=== PATIENT | female | born 1980 | race Caucasian/White ===

== ENCOUNTER → 2023-07-31 12:00 | Outpatient (CLI) | payer OTHER, SELFPAY ==
[2023-07-31 19:23] LABS: Basophils # 0.1 K/mm3 (0-0.2); Basophils % 0.7 % (0.1-2.0); Eosinophils # 0.4 K/mm3 (0.0-0.4); Eosinophils % 5.6 % (0.1-12.0); Hematocrit 43.2 % (37.0-47.0); Hemoglobin 14.3 g/dL (12.2-16.2); Lymphocytes % 26.9 % (10-50); Mean Corpuscular HGB Conc 33.2 g/dL (31.8-35.4); Mean Corpuscular Hemoglobin 33.2 pg (27.0-31.2); Mean Corpuscular Volume 100.1 fl (81-99); Mean Platelet Volume 10.6 fl (7.4-10.4); Monocytes # 0.5 K/mm3 (0.1-1.0); Monocytes % 6.8 % (1.7-9.3); Neutrophils # 4.5 K/mm3 (1.8-7.8); Platelet Count 295 K/mm3 (142-424); Red Blood Count 4.31 M/mm3 (4.20-5.40); Red Cell Distribution Width 12.9 % (11.5-17.5); White Blood Count 7.6 K/mm3 (4.8-10.8)
[2023-07-31 19:36] LABS: Alanine Aminotransferase 23 U/L (12-78); Albumin Level 4.4 g/dl (3.5-5.0); Albumin/Globulin Ratio 1.6 (1.1-1.8); Alkaline Phosphatase 98 U/L (38-126); Anion Gap 13.5 mEq/L (5-15); Aspartate Amino Transferase 32 U/L (14-36); Bilirubin,Total 0.2 mg/dl (0.2-1.3); Blood Urea Nitrogen 14 mg/dl (7-17); Calcium 9.6 mg/dl (8.4-10.2); Carbon Dioxide 24 mmol/L (22.0-30.0); Chloride 106 mmol/L (98-107); Estimated Glomerular Filt Rate 109 ml/min (>60); GFR (African American) 132 ML/MIN (>60); Globulin 2.8 g/dL (1.3-3.2); Glucose 93 mg/dl (74-100); Potassium 4.5 mmoL/L (3.5-5.1); Sodium 139 mmol/L (136-145); Total Protein,Serum 7.2 g/dl (6.3-8.2)
[2023-07-31 19:56] LABS: 25-OH Vitamin D, Total 49.1 ng/mL (30-100)
[2023-07-31 20:10] LABS: Thyroid Stimulating Hormone 1.12 uIU/mL (0.465-4.68)
== END ==
PROVIDERS: PCP Internal Medicine; Visit Provider Internal Medicine
DX: Z76.89 Persons encountering health services in other specified circumstances (principal); G43.909 Migraine, unspecified, not intractable, without status migrainosus; R56.9 Unspecified convulsions; L50.6 Contact urticaria; Z68.28 Body mass index [BMI] 28.0-28.9, adult; Z72.0 Tobacco use
CPT/HCPCS: 80053; 82306; 84443; 85025

== ENCOUNTER → 2023-08-10 08:45 | Outpatient (CLI) | payer OTHER, SELFPAY ==
--- NOTE | 2023-08-10 08:50 | XR_ITS ---
FINAL REPORT CLINICAL HISTORY: Osteoporosis screening COMPARISON: None FINDINGS: Using L1-4, the bone mineral density of the spine is 1.003 g/cm2, corresponding to T-score of -0.4, within normal limits. Using the left hip, the bone mineral density of the femoral neck is 0.913 g/cm2, corresponding to a T-score of -0.2, within normal limits. Using the right hip, the bone mineral density of the femoral neck is 0.855 g/cm2, corresponding to a T-score of 0.1, within normal limits. FRAX not reported because all T-scores at or above -1.0. NOTE: T-score: Standard deviation compared with peak bone mass of young adult mean. *Following the recommendations of the International Society of Bone densitometry, classification of hip BMD is based on the lower of two T-scores; total hip or femoral neck. IMPRESSION: Normal bone mineral density of the lumbar spine and hips. Reviewed, Interpreted and Dictated by Chico Harvey III, MD Transcribed by Glenda Holder Authenticated and [facility]
== END ==
PROVIDERS: PCP Internal Medicine; Visit Provider Internal Medicine
DX: Z13.820 Encounter for screening for osteoporosis (principal); M85.9 Disorder of bone density and structure, unspecified
CPT/HCPCS: 77080

== ENCOUNTER 2023-09-24 03:06 | Emergency (ER) | payer OTHER, SELFPAY ==
[2023-09-24] VITALS (9 sets, daily range): BP systolic 105–142; BP diastolic 61–80; PULSE 83–124; RESP 16–30; TEMP 36.8; O2SAT 94–100; BMI 27.4; BMI 25.8
[2023-09-24 04:21] LABS: Basophils # 0.1 K/mm3 (0-0.2); Eosinophils # 0.6 K/mm3 (0.0-0.4); Eosinophils % 5.5 % (0.1-12.0); Hematocrit 44.3 % (37.0-47.0); Hemoglobin 14.8 g/dL (12.2-16.2); Lymphocytes # 4.4 K/mm3 (0.7-4.5); Lymphocytes % 39.6 % (10-50); Mean Corpuscular HGB Conc 33.4 g/dL (31.8-35.4); Mean Corpuscular Hemoglobin 32.7 pg (27.0-31.2); Mean Platelet Volume 9.5 fl (7.4-10.4); Monocytes # 0.8 K/mm3 (0.1-1.0); Monocytes % 6.8 % (1.7-9.3); Neutrophils # 5.3 K/mm3 (1.8-7.8); Neutrophils % 47.2 % (37.0-80.0); Platelet Count 310 K/mm3 (142-424); Red Blood Count 4.52 M/mm3 (4.20-5.40); Red Cell Distribution Width 13.4 % (11.5-17.5); White Blood Count 11.1 K/mm3 (4.8-10.8)
[2023-09-24 04:22] LABS: Chloride 108 mmol/L (98-107); Potassium 3.8 mmoL/L (3.5-5.1); Sodium 141 mmol/L (136-145)
[2023-09-24 04:25] LABS: Alanine Aminotransferase 21 U/L (12-78); Albumin Level 4.8 g/dl (3.5-5.0); Albumin/Globulin Ratio 1.5 (1.1-1.8); Alkaline Phosphatase 104 U/L (38-126); Anion Gap 10.8 mEq/L (5-15); Aspartate Amino Transferase 32 U/L (14-36); Bilirubin,Total 0.4 mg/dl (0.2-1.3); Blood Urea Nitrogen 17 mg/dl (7-17); Carbon Dioxide 26 mmol/L (22.0-30.0); Creatinine Clearance Estimated 76 mL/min (50-200); Estimated Glomerular Filt Rate 54 ml/min (>60); GFR (African American) 66 ML/MIN (>60); Globulin 3.3 g/dL (1.3-3.2); Total Protein,Serum 8.1 g/dl (6.3-8.2)
[2023-09-24 04:26] LABS: Calcium 9.8 mg/dl (8.4-10.2); Glucose 97 mg/dl (74-100)
--- NOTE | 2023-09-24 05:42 | [facility].EDGENADL ---
Discharge Plan Disposition Patient Disposition: Home, Self-Care Condition: Good Prescriptions Prescriptions: New epinephrine [EpiPen 2-Alberto] 0.3 mg/0.3 mL auto-injector 0.3 mg IM Q10M PRN (Reason: anaphylaxis) Qty: 2 0RF Rx Instructions: for 2 doses methylprednisolone [Medrol (Alberto)] 4 mg tablets,dose pack 4 mg PO QID Qty: 21 0RF No Action pseudoephedrine HCl [Sudogest 12-hour] 120 mg tablet extended release 120 mg PO Q12H cyclobenzaprine 10 mg tablet 10 mg PO HS topiramate 100 mg tablet 100 mg PO BID diphenhydramine HCl [Allergy Relief(diphenhydramin)] 25 mg tablet 25 mg PO TID PRN cetirizine 10 mg tablet 10 mg PO BID famotidine 20 mg tablet 20 mg PO BID dicyclomine 20 mg tablet 20 mg PO QID PRN promethazine 25 mg tablet 25 mg PO Q6H PRN albuterol sulfate [Ventolin HFA] 90 mcg/actuation HFA aerosol inhaler 2 puff inhalation Q6H PRN sumatriptan succinate 50 mg tablet 50 mg PO Q2H PRN Rx Instructions: do not exceed 4 doses per 24 hrs magnesium 250 mg tablet 400 mg PO DAILY cholecalciferol (vitamin D3) 125 mcg (5,000 unit) capsule 125 mcg PO DAILY vitamin B complex Capsule 1 cap PO DAILY topiramate 100 mg tablet 100 mg PO DAILY 90 Days Qty: 90 3RF cyclobenzaprine 10 mg tablet 10 mg PO HS 30 Days Qty: 30 4RF epinephrine 0.3 mg/0.3 mL syringe 0.3 mg IM Q5-15M PRN (Reason: anaphylaxis) Qty: 2 6RF Rx Instructions: do not exceed 3 doses per episode Referrals Follow up/Referrals: Malcolm Dash DO [Primary Care Provider] - See instructions Activity Restrictions/Add. Instructions Additional Instructions/Restrictions: You were evaluated in the emergency department today. 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 Redose Benadryl as needed every 6-8 hours. Return to the emergency department right away for new or worsening symptoms. Clinical Impressions Clinical Impression: Anaphylaxis Stand Alone Forms Stand Alone Forms: Work/School Release Instructions Patient Instructions: DI for Anaphylaxis Discharge ED Provider: Sangeeta Sparks General Adult HPI General Chief complaint: Allergic Reaction Stated complaint: allergic reaction Time Seen by Provider: 09/24/23 03:07 Mode of Arrival: Wheelchair Source of Information: Patient Limitations: No Limitations Description of Symptoms (Recalled from ER Triage Doc. 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 pt gave herself a subq dose of epi. At this time the pt was transfered to a room and was still coughing and trouble breathing. pt has a hx of anaphylaxis with airway restriction. History of Present Illness HPI narrative: This patient is a 43-year-old female presenting to the emergency department with concern for allergic reaction. Patient started coughing and having stridor and difficulty breathing at work here in the ED. She self-administered subcutaneous epi via her EpiPen, but she continued to have severe symptoms. Given this, she checked in. History is limited due to acuity of condition. She states she is allergic to everything, but her only medication allergy is penicillin. On medical record review, she has been evaluated by PCP who noted that she has intermittent urticaria for which she uses her EpiPen. Related Data Home Medications Medication Instructions Recorded Confirmed albuterol sulfate 90 mcg/actuation 2 puff inhalation Q6H PRN 07/31/23 07/31/23 aerosol inhaler (Ventolin HFA) cetirizine 10 mg tablet 10 mg PO BID 07/31/23 07/31/23 cholecalciferol (vitamin D3) 125 125 mcg PO DAILY 07/31/23 07/31/23 mcg (5,000 unit) capsule cyclobenzaprine 10 mg tablet 10 mg PO HS 07/31/23 07/31/23 dicyclomine 20 mg tablet 20 mg PO QID PRN 07/31/23 07/31/23 diphenhydramine HCl 25 mg tablet 25 mg PO TID PRN 07/31/23 07/31/23 Darling
== END 2023-09-24 07:04 | disposition home or self-care (01) ==
PROVIDERS: Emergency Provider Emergency Medicine; PCP Internal Medicine
DX: T78.2XXA Anaphylactic shock, unspecified, initial encounter (principal); J45.909 Unspecified asthma, uncomplicated; F17.210 Nicotine dependence, cigarettes, uncomplicated
CPT/HCPCS: 80053; 85025; 96361; 96372; 96374; 96375; 99291; J2405